=== PATIENT | male | born 1950 | race Caucasian/White ===

== ENCOUNTER 2016-09-21 14:46 | Emergency (ER) | payer MEDICARE, BC ==
[~2016-09-21] VITALS: Ht 172.7 cm; Wt 85.0 kg
[~2016-09-21 14:46] MED LIST: AMBI5TAB PO; CO Q200C PO; FISH120014 PO; TAB-TAB PO; TAMS0.4C67 PO
[2016-09-21 14:47] VITALS: BP 137/70; PULSE 89; RESP 17; TEMP 98.1; O2SAT 98
[2016-09-21] MEDS ORDERED: TAMS5CAP PO (15:00)
[2016-09-21] MEDS ORDERED: WELLTAB39 PO (15:00)
[2016-09-21] MEDS ORDERED: SODIUM CHLORIDE 0.9% FLUSH 10 ML FLUSH IV FLUSH PRN (15:15)
[2016-09-21] MEDS ORDERED: ACETAMINOPHEN/HYDROcodone 325 MG/5 MG TAB PO ONE (15:15)
[2016-09-21] MEDS ORDERED: ONDANSETRON HCL 4 MG/2 ML VIAL IVP ONE (15:15)
[2016-09-21] MEDS ORDERED: MORPHINE SULFATE 4 MG/ML INJ IV PUSH ONE ×2 (15:15→16:00)
--- NOTE | 2016-09-21 15:15 | PD ---
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 History of ureterolithiasis requiring lithotripsy. Patient has had acute onset of left-sided CVA pain radiating slightly into the abdomen with nausea but no vomiting. No urinary symptoms, but states this feels identical to his previous stones. He has been historically been able to pass them without difficulty. Bowel movements regular. PFSH Past Medical History Arthritis: Yes Cancer: No Cardiovascular Problems: No Diabetes: No Endocrine: No Genitourinary: No Hiatal Hernia: No Hypertension: No Kidney Stones: Yes Musculoskeletal: No Neurologic: No Psychiatric: No Reproductive: No Respiratory: Yes (HX PULMONARY EMBOLISM) Immunizations Current: Yes Thyroid Disease: No Tetanus Vaccination: < 5 Years Past Surgical History Abdominal Surgery: Yes AICD: No Cardiac Surgery: No Ear Surgery: No Endocrine Surgery: No Eye Surgery: No Genitourinary Surgery: No Joint Replacement: Yes (LEFT TOTAL HIP) Neurologic Surgery: Yes (FUSION C7-T1) Oral Surgery: No Pacemaker: No Thoracic Surgery: No Other Surgery: Yes Social History Alcohol Use: Yes (SOCIAL) Tobacco Use: No Substance Use: No Allergies-Medications (Allergen,Severity, Reaction): Coded Allergies: Latex (Verified Allergy, Intermediate, 09/21/16) Reported Meds & Prescriptions Reported Meds & Active Scripts Active Reported Wellbutrin Xl 24 HR (Bupropion HCl) 300 Mg Tab 300 Mg PO DAILY Flomax (Tamsulosin HCl) 0.4 Mg Cap 0.4 Mg PO HS Review of Systems Except as stated in HPI: all other systems reviewed are Neg Physical Exam Narrative GENERAL: Well-appearing male in no acute distress SKIN: Focused skin assessment warm/dry. HEAD: Normocephalic. EYES: No scleral icterus. No injection or drainage. CARDIOVASCULAR: Regular rate and rhythm. No murmur appreciated. RESPIRATORY: No accessory muscle use. GASTROINTESTINAL: Abdomen soft, non-tender, nondistended. Left-sided CVA pain not made worse with palpation MUSCULOSKELETAL: Normal gait NEUROLOGICAL: Awake and alert. Normal speech. PSYCHIATRIC: Appropriate mood and affect; insight and judgment normal. Data Data Last Documented VS Vital Signs Date Time Temp Pulse Resp B/P Pulse Ox O2 Delivery O2 Flow Rate FiO2 09/21/16 16:51 97 09/21/16 14:47 98.1 89 17 137/70 Orders Urinalysis - C+S If Indicated (09/21/16 15:06) Iv Access Insert/Monitor (09/21/16 15:12) Oximetry (09/21/16 15:12) Morphine Inj (Morphine Inj) (09/21/16 15:15) Ondansetron Inj (Zofran Inj) (09/21/16 15:15) Sodium Chloride 0.9% Flush (Ns Flush) (09/21/16 15:15) Acetamin-Hydrocod 325-5 Mg ([place] 5-325 (09/21/16 15:15) Morphine Inj (Morphine Inj) (09/21/16 16:00) MDM Medical Decision Making Medical Screen Exam Complete: Yes Emergency Medical Condition: Yes Medical Record Reviewed: Yes Differential Diagnosis Pleasant 66-year-old male with history of ureterolithiasis here with left flank pain radiating into her abdomen feeling similar to his history of ureterolithiasis pain. Differential includes ureterolithiasis, UTI/ pyelonephritis and less likely diverticulitis or peritoneal pathology given benign abdominal examination. Narrative Course Patient placed on monitor, IV established. Given morphine, Zofran. Still uncomfortable and given repeat dose of morphine. Urinalysis remains pending at the time this dictation. Patient signed out to oncoming provider waiting results of same for hopeful disposition to home. Federica Conner MD Sep 21, 2016 15:15
[2016-09-21 16:51] VITALS: O2SAT 97
[2016-09-21 17:14] LABS: BLOOD, URINE TRACE (NEG); COMMENT (UR) CULT NOT INDICATED; CULTURE IF INDICATED CULT NOT INDICATED; GLUCOSE,URINE NEG (NEG); KETONE, URINE NEG (NEG); MUCUS URINE FEW /lpf (OCC); NITRITE,URINE NEG (NEG); SQUAMOUS EPITHELIAL CELL URINE <1 /hpf (0-5); URINE COLOR YELLOW (YELLW/STRAW)
--- NOTE | 2016-09-21 17:23 | PD ---
Physical Exam Narrative The patient was initially evaluated by the previous provider in sign out to me at the beginning of my shift at approximately 5:00 PM pending UA and disposition. See her note for further details. Briefly this is a 66-year-old male with history of ureterolithiasis who presents for evaluation of left flank pain. He was given pain medication by the previous provider and on my assessment he is resting comfortably, stating he feels much better and would like to go home. UA shows trace occult blood, few mucus. Not suggestive of UTI. Vital signs are within normal limits. The patient reports that he has a prescription for pain medication at home. He is also already on Flomax. He is stable for discharge home with outpatient follow- up with his urologist this week. Data Data Last Documented VS Vital Signs Date Time Temp Pulse Resp B/P Pulse Ox O2 Delivery O2 Flow Rate FiO2 09/21/16 16:51 97 09/21/16 14:47 98.1 89 17 137/70 Orders Urinalysis - C+S If Indicated (09/21/16 15:06) Iv Access Insert/Monitor (09/21/16 15:12) Oximetry (09/21/16 15:12) Morphine Inj (Morphine Inj) (09/21/16 15:15) Ondansetron Inj (Zofran Inj) (09/21/16 15:15) Sodium Chloride 0.9% Flush (Ns Flush) (09/21/16 15:15) Acetamin-Hydrocod 325-5 Mg ([place] 5-325 (09/21/16 15:15) Morphine Inj (Morphine Inj) (09/21/16 16:00) Labs Laboratory Tests Test 09/21/16 16:46 Urine Color YELLOW Urine Turbidity CLEAR Urine pH 6.0 Urine Specific [place] 1.019 Urine Protein NEG mg/dL Urine Glucose (UA) NEG mg/dL Urine Ketones NEG mg/dL Urine Occult Blood TRACE Urine Nitrite NEG Urine Bilirubin NEG Urine Urobilinogen LESS THAN 2.0 MG/DL Urine Leukocyte Esterase NEG Urine RBC 2 /hpf Urine WBC 1 /hpf Urine Squamous Epithelial <1 /hpf Cells Urine Mucus FEW /lpf Microscopic Urinalysis Comment CULT NOT INDICATED MDM Supervised Visit with [facility]IL[facility]: No Diagnosis Primary Impression: Renal colic on left side Referrals: Urologist 3 days Additional Instruction: Follow-up with your urologist this week. Return to the emergency department for worsening symptoms or any other concerns. Disposition: 01 DISCHARGE HOME Condition: Stable Brett Falcon MD Sep 21, 2016 17:23
[2016-09-21 18:02] VITALS: BP 130/78
== END 2016-09-21 18:03 | disposition home or self-care (01) ==
LOC: NEPD 14:46
DX: N23 Unspecified renal colic (principal); R11.0 Nausea; Z87.39 Personal history of other diseases of the musculoskeletal system and connective tissue; Z87.442 Personal history of urinary calculi; Z87.09 Personal history of other diseases of the respiratory system; Z86.711 Personal history of pulmonary embolism
CPT/HCPCS: 81001; 96374; 96375; 96376; 99284; J2270; J2405

== ENCOUNTER → 2016-10-05 | Day surgery (SDC) | payer MEDICARE, BC ==
[~2016-10-05] MED LIST changes: -AMBI5TAB PO; +BUPIVACAINE/EPINEPHRINE 0.25% PF 30 ML VIAL ONE; -CO Q200C PO; +COUM6TAB PO; -FISH120014 PO; +LACTATED RINGER'S 1000 ML INJ 1,000 ML ONE; +LIDOCAINE 1%/EPINEPHrine 1:100,000 SOLN 20 ML VIAL ONE; +MIDAZOLAM HCL 2 MG/2 ML VIAL ONE; +NEOMYCIN/POLYMYXIN/BACITRACIN OINT 15 GM TUBE ONE; +ONDANSETRON HCL 4 MG/2 ML VIAL IV PUSH ONE; +PROPOFOL 200 MG/20 ML AMP IV ONE; -TAB-TAB PO; -TAMS0.4C67 PO; +TAMS5CAP PO; +WELLTAB39 PO; +ceFAZolin 2 GM PREMIX 50 ML ONE; +oxyCODONE/ACETAMINOPHEN 5 MG/325 MG TAB ONE
--- NOTE | 2016-10-05 12:03 | TN ---
cc: ANTWAN ESTEVEZ M.D. DATE OF SURGERY: 10/05/2016 PREOPERATIVE DIAGNOSIS 1. Hematoma status post ventral incisional hernia repair. 2. Anticoagulation use secondary to previous pulmonary embolism. POSTOPERATIVE DIAGNOSIS 1. Hematoma status post ventral incisional hernia repair. 2. Anticoagulation use secondary to previous pulmonary embolism. PROCEDURE PERFORMED Evacuation of hematoma abdominal wall. SURGEON Antwan Estevez CALENDER WORKER HELPER Melodie Amaro MS III ANESTHESIA General LMA COMPLICATIONS None. 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 Postoperatively he was placed back on his high dose Lovenox as well as Coumadin due to his previous PE from previous surgical procedure. After surgery the patient developed a fairly large abdominal wall hematoma. He was seen and evaluated in the office on Saturday and was doing fairly well and was felt hematoma could be observed. However, the hematoma started leaking through the surgical incision last evening and he called the office and requested that it be evacuated. Risks and benefits of hematoma evaluation including infection was discussed with him and he was agreeable. Details the patient was brought to the operating placed supine on the table. After adequate general anesthesia achieved LMA the anterior abdomen was prepped and draped in standard surgical fashion. The Steri-Strips were then removed prior to prepping and draping. The patient had a small maybe 2-3 mm opening at the superior part of his incision. Local anesthetic was injected around this. A 4-0 nylon was placed just above the umbilicus in order to secure the distal incision. The upper incision was then opened with this scalpel. Moderate size hematoma was evacuated suction. Suction irrigation. Wound was cleansed with some of peroxide Q-tips on the brake the hematoma loculations. The wound was then irrigated with 2 liters warm saline solution until the fluid was noted be clear. A Site was selected in the left lower quadrant of the abdomen for a drain site. 0.25% Marcaine was injected and a small stab wound incision was made. The drain was then reduced using a mosquito clamp. Drain was placed throughout the entire abdominal wall incision. Drain was secured to 4-0 nylon suture. The upper midline incision was then closed using a 3-0 Vicryl for the subcutaneous tissue, a 4-0 Monocryl for the skin and then nylon to reinforce the incision. Sterile dressings were applied. The patient was awakened, brought to recovery in stable condition. Antwan MD CHAPITO Estevez/oli /11:41 AM /11:52 AM
== END | disposition home or self-care (01) ==
LOC: ESDC 09:30
PROVIDERS: ATTEND Surgery Trauma Surgery
DX: K91.870 Postprocedural hematoma of a digestive system organ or structure following a digestive system procedure (principal); Z79.01 Long term (current) use of anticoagulants
CPT/HCPCS: 00400; 10140; J0690; J2405; J3010; J7120; J2250

== ENCOUNTER 2016-12-13 11:25 | Day surgery (SDC) | payer MEDICARE, BC ==
[~2016-12-13] VITALS: Ht 172.7 cm; Wt 83.6 kg
[~2016-12-13 11:25] MED LIST changes: -BUPIVACAINE/EPINEPHRINE 0.25% PF 30 ML VIAL ONE; -COUM6TAB PO; -LACTATED RINGER'S 1000 ML INJ 1,000 ML ONE; -LIDOCAINE 1%/EPINEPHrine 1:100,000 SOLN 20 ML VIAL ONE; -MIDAZOLAM HCL 2 MG/2 ML VIAL ONE; -NEOMYCIN/POLYMYXIN/BACITRACIN OINT 15 GM TUBE ONE; -ONDANSETRON HCL 4 MG/2 ML VIAL IV PUSH ONE; -PROPOFOL 200 MG/20 ML AMP IV ONE; -ceFAZolin 2 GM PREMIX 50 ML ONE; -oxyCODONE/ACETAMINOPHEN 5 MG/325 MG TAB ONE
[2016-12-13] MEDS ORDERED: SODIUM CHLORIDE 0.9% 1000 ML IV SCH (12:00)
[2016-12-13 12:12] LABS: AUTOMATED NEUTROPHIL # 4.3 TH/MM3 (1.8-7.7); BASOPHIL # 0.1 TH/MM3 (0-0.2); BASOPHIL % 0.8 % (0.0-2.0); EOSINOPHIL # 0.4 TH/MM3 (0-0.4); EOSINOPHIL % 6.1 % (0.0-4.0); HEMATOCRIT 43.8 % (39.0-51.0); HEMO FLAGS DIFF FINAL; LYMPH % 21.6 % (9.0-44.0); LYMPHOCYTE # 1.5 TH/MM3 (1.0-4.8); MEAN CELL VOLUME 89.2 FL (80.0-100.0); MEAN CORPUSCULAR HGB CONC 33.6 % (32.0-36.0); MONO % 9.1 % (0.0-8.0); NEUT % 62.4 % (16.0-70.0); PLATELET COUNT 302 TH/MM3 (150-450); RED BLOOD COUNT 4.92 MIL/MM3 (4.50-5.90); WHITE BLOOD COUNT 6.8 TH/MM3 (4.0-11.0)
[2016-12-13] MEDS ORDERED: COUM6TAB PO (12:14)
[2016-12-13 12:20] LABS: APTT (PATIENT) 28.9 SEC (24.3-30.1); INTERNATIONAL NORMALIZED RATIO 1.3 RATIO; PROTHROMBIN TIME - PATIENT 14.8 SEC (9.8-11.6)
[2016-12-13] MEDS ORDERED: SODIUM BICARBONATE 8.4% INJ 50 ML ONE (13:26)
[2016-12-13] MEDS ORDERED: fentaNYL CITRATE 250 MCG/5 ML AMP ONE (13:28)
--- NOTE | 2016-12-13 13:57 | PD.RAD ---
Post Procedure Progress Note Pre Procedure Diagnosis: (1) S/P insertion of IVC (inferior vena caval) filter Post Procedure Diagnosis: (1) S/P insertion of IVC (inferior vena caval) filter Procedure Date: Dec 13, 2016 Supervising Radiologist: Jose Hui Estimated blood loss: 3cc Anesthesia: Local, Analgesia Plan of Activity Patient to Unit: ROPU Patient Condition: Good Additional Comments: Pre IVC cavagram demonstrated the IVC to be widely patent. IVC filter removed without difficulty. Post IVC cavagram unremarkable Full dictated report to follow. See PACS Report for procedural detail/treatment Jose Hui MD Dec 13, 2016 13:57
[2016-12-13 14:00] VITALS: BP 159/88; PULSE 63; RESP 18; O2SAT 97
[2016-12-13 14:15] VITALS: BP 154/80; PULSE 65; RESP 18; O2SAT 98
[2016-12-13 14:45] VITALS: BP 128/71; PULSE 60; RESP 18; O2SAT 96
[2016-12-13 15:15] VITALS: BP 119/63; PULSE 62; RESP 18; O2SAT 97
== END 2016-12-13 15:39 | disposition home or self-care (01) ==
LOC: HROP 11:25 → HRIP 11:28 → HROP 15:39
PROVIDERS: ATTEND Radiology Body Imaging
DX: Z45.2 Encounter for adjustment and management of vascular access device (principal); Z79.01 Long term (current) use of anticoagulants
CPT/HCPCS: 37193; 85025; 85610; 85730; C1880; C1887; C1894; J3010